=== PATIENT | male | born 1995 | race Caucasian/White ===

== ENCOUNTER 2021-02-15 20:40 | Emergency (ER) | payer OTHER ==
[2021-02-15] MEDS ORDERED: NAPROXEN500 MG PO (22:26)
[2021-02-15] MEDS ORDERED: ROBAXIN750 MG PO (22:26)
== END 2021-02-15 22:40 | disposition home or self-care (01) ==
LOC: FER 20:40
DX: S16.1XXA Strain of muscle, fascia and tendon at neck level, initial encounter (principal); V43.52XA Car driver injured in collision with other type car in traffic accident, initial encounter; Y92.410 Unspecified street and highway as the place of occurrence of the external cause
CPT/HCPCS: 72040